=== PATIENT | female | born 1940 | race Caucasian/White ===

== ENCOUNTER 2019-06-18 10:25 | Emergency (ER) | payer MEDICARE, OTHER ==
[~2019-06-18] VITALS: Ht 154.9 cm; Wt 55.0 kg
--- NOTE | 2019-06-18 10:35 | PHYS DOC ---
Adult General HPI HPI A 79-year-old female presents after a fall from her wheelchair with a right scalp laceration. Patient is demented and on hospice care. History was obtained from EMS reported stable vitals and normal mentation for her. History difficult to obtain secondary to dementia. Review of Systems Review of Systems Review of systems difficult to obtain secondary to dementia Current Medications Current Medications Current Medications Medications (Trade) Dose Ordered Sig/Ting Start Time Stop Time Status Last Admin Dose Admin Lidocaine/ Epinephrine (LIDOCAINE 2%-EPI 1:100,000 multi-dose) 20 ml 1X ONCE 06/18/19 11:15 06/18/19 11:16 DC 06/18/19 11:50 20 ML Neomycin/ Polymyxin/ Bacitracin (Triple Antibiotic Ointment) 1 pkt 1X ONCE 06/18/19 11:15 06/18/19 11:16 DC 06/18/19 11:49 1 PKT Allergies Allergies Allergies Coded Allergies Type Severity Reaction Last Updated Verified cefuroxime Allergy Unknown 06/18/19 Yes Physical Exam Physical Exam Constitutional: Poor hygiene, tired appearing, difficult to arouse. HENT: Normocephalic, 3 cm right frontal scalp laceration. Small frontal sugar hematoma Eyes: PERRL, EOMI, conjunctiva normal, no discharge Neck: Normal range of motion, no tenderness, supple Cardiovascular: Heart rate normal, regular rhythm Lungs & Thorax: Bilateral breath sounds clear to auscultation, no wheezing Abdomen: Soft, no tenderness Skin: Right frontal scalp laceration 3 cm with small hematoma. Back: No tenderness, no CVA tenderness Extremities: No tenderness, ROM intact, no edema Neurologic: No oriented to self. Difficult to arouse. Sleepy Physical exam difficult to obtain and unreliable secondary to dementia. Current Patient Data Vital Signs Vital Signs Date Time Temp Pulse Resp B/P (MAP) Pulse Ox O2 Delivery O2 Flow Rate FiO2 06/18/19 10:25 98.8 105 14 140/99 (113) 96 Room Air 98.8 EKG EKG [] Radiology/Procedures Radiology/Procedures PROCEDURE: CT HEAD AND CERVICAL SPINE WO Examination: CT HEAD AND CERVICAL SPINE WO History: Trauma, laceration, pain Comparison/Correlation: 10/15/2014 CT head without contrast Findings: Axial images of the head and cervical spine were obtained without contrast. Sagittal and coronal reformatted images of cervical spine were obtained. Advanced atrophy and chronic changes bilaterally noted. Ventriculomegaly again seen No intracranial hemorrhage, midline shift, or mass effect. Mild right frontal scalp subgaleal hematoma is present. Opacification of the sphenoid sinuses, frontal sinuses, left ethmoid air cells, and maxillary sinuses is notable. Partial desiccation right ethmoid air cells. Few fluid levels may be present within some of the sinuses. Significant degenerative narrowing of the left lateral mass with C2 is noted. Mild acromioclavicular joint degenerative remodeling is present. C5-6 developmental fusion noted. No fracture or bone destruction. Carotid bulb calcification noted bilaterally. Impression: Chronic pansinusitis. Few fluid levels raising question of acute sinusitis also raised. No fracture or malalignment. No intracranial hemorrhage. Minimal right frontal forehead region subgaleal hematoma. PQRS Compliance Statement: One or more of the following individualized dose reduction techniques were utilized for this examination: 1. Automated exposure control 2. Adjustment of the mA and/or kV according to patient size 3. Use of iterative reconstruction technique Electronically signed by: Kevin Bridges MD (06/18/2019 11:26 AM) [facility] Course & Med Decision Making Course & Med Decision Making Pertinent Labs and Imaging studies reviewed. (See chart for details) [Patient presents with a forehead laceration and minor head injury after a fall out of her wheelchair. Patient is on hospice. A CT scan was obtained of the head and neck to rule out cervical fracture or intracranial hemorrhage. It was negative. The laceration was cleaned, sutured, antibiotic ointment was applied and the wound was dressed. Patient stable for discharge with outpatient follow- up with PCP. Discussed findings and plan with patient. Dragon Disclaimer Dragon Disclaimer This electronic medical record was generated, in whole or in part, using a voice recognition dictation system. Laceration/Wound Repair Laceration/Wound Repair : Wound Location: head Wound's Depth, Shape: superficial Wound Length (cm): 3 Wound Explored: no foreign body removed Irrigated w/ Saline (ccs): 100 Anesthesia: Lidocaine w/ Epi (2%) Volume Anesthetic (ccs): 2 Wound Debrided: minimal Wound Repaired With: sutures Suture Size/Type: 5:0, nylon Number of Sutures: 8 Sterile Dressing Applied?: Yes Progress Implied consent obtained. Time out performed. Hand hygiene utilized. Wound cleaned with ChloraPrep. Anesthesia obtained via a 25-gauge hypodermic needle with (2) mL's of lidocaine 2% with epinephrine. Copious irrigation performed. Wound well approximated with 5-0 Nylon x8 simple interrupted. Patient tolerated procedure well and without difficulty. Empiric antibiotic ointment applied prior to sterile dressing. Departure Departure Impression: Primary Impression: Fall Additional Impressions: Forehead laceration Minor head injury Disposition: 01 HOME, SELF-CARE (back to hospice) Condition: STABLE Patient Instructions: Fall Prevention in Hospitals, Head Injury, Adult, [id number], Laceration Care, Adult, [id number] Additional Instructions: Do not soak your wound. You may shower. Clean wound daily with soap and water. Change dressing 2 times daily. Use over the counter antibiotic ointment with each dressing change. Sutures need to be removed in 5-7 days. Present to your family doctor or local urgent care for removal. You may also present to the ED but it will be an additional visit/charge. After suture removal you may use Vitamin E ointment to soften the wound and prevent scarring. Problem Qualifiers Primary Impression: Fall Encounter type: initial encounter Qualified Codes: W19.XXXA - Unspecified fall, initial encounter Additional Impressions: Forehead laceration Encounter type: initial encounter Qualified Codes: S01.81XA - Laceration without foreign body of other part of head, initial encounter Minor head injury Encounter type: initial encounter Qualified Codes: S09.90XA - Unspecified injury of head, initial encounter CINDY JULIAN DO Jun 18, 2019 10:35
[2019-06-18] MEDS ORDERED: LIDOCAINE 2%/EPI 1:100,000 20 ML VIAL. IJ ONE (11:15)
[2019-06-18] MEDS ORDERED: NEOMY/BACITR/POLYMYXIN OINT PACKET. TP ONE (11:15)
--- NOTE | 2019-06-18 11:29 | RAD ---
Examination: CT HEAD AND CERVICAL SPINE WO History: Trauma, laceration, pain Comparison/Correlation: 10/15/2014 CT head without contrast Findings: Axial images of the head and cervical spine were obtained without contrast. Sagittal and coronal reformatted images of cervical spine were obtained. Advanced atrophy and chronic changes bilaterally noted. Ventriculomegaly again seen No intracranial hemorrhage, midline shift, or mass effect. Mild right frontal scalp subgaleal hematoma is present. Opacification of the sphenoid sinuses, frontal sinuses, left ethmoid air cells, and maxillary sinuses is notable. Partial desiccation right ethmoid air cells. Few fluid levels may be present within some of the sinuses. Significant degenerative narrowing of the left lateral mass with C2 is noted. Mild acromioclavicular joint degenerative remodeling is present. C5-6 developmental fusion noted. No fracture or bone destruction. Carotid bulb calcification noted bilaterally. Impression: Chronic pansinusitis. Few fluid levels raising question of acute sinusitis also raised. No fracture or malalignment. No intracranial hemorrhage. Minimal right frontal forehead region subgaleal hematoma. PQRS Compliance Statement: One or more of the following individualized dose reduction techniques were utilized for this examination: 1. Automated exposure control 2. Adjustment of the mA and/or kV according to patient size 3. Use of iterative reconstruction technique Electronically signed by: Kevin Bridges MD (06/18/2019 11:26 AM) [facility]
[2019-06-18 13:00] VITALS: BP 93/66
== END 2019-06-18 13:35 | disposition home or self-care (01) ==
LOC: ER 10:25
DX: S01.01XA Laceration without foreign body of scalp, initial encounter (principal); F03.90 Unspecified dementia, unspecified severity, without behavioral disturbance, psychotic disturbance, mood disturbance, and anxiety; Z88.1 Allergy status to other antibiotic agents; W05.0XXA Fall from non-moving wheelchair, initial encounter; Y93.89 Activity, other specified; Y92.128 Other place in nursing home as the place of occurrence of the external cause; Y99.8 Other external cause status
CPT/HCPCS: 12002; 70450; 72125; 99284; J3490